=== PATIENT | male | born 1970 | race Caucasian/White ===

== ENCOUNTER 2019-06-17 09:44 | Emergency (ER) | payer MEDICARE, MEDICAID ==
[~2019-06-17] VITALS: Ht 182.9 cm; Wt 109.0 kg
[2019-06-17] MEDS ORDERED: IV NORMAL SALINE 1000ML BAG 1,000 ML IV ONE ×2 (10:00→12:00)
[2019-06-17 10:17] LABS: BASO # 0.1 x10^3/uL (0.0-0.2); BASO % 1 % (0-3); EOS # 0.1 x10^3/uL (0.0-0.7); EOS % 1 % (0-3); HEMATOCRIT 45.2 % (39.0-53.0); HEMOGLOBIN 15.2 g/dL (13.0-17.5); LYMPH % 43 % (24-48); MEAN CORPUSCULAR HEMOGLOBIN 30 pg (25-35); MEAN CORPUSCULAR HGB CONC 34 g/dL (31-37); MEAN CORPUSCULAR VOLUME 89 fL (79-100); MONO # 0.9 x10^3/uL (0.0-1.1); MONO % 9 % (0-9); NEUT # 4.4 x10^3/uL (1.8-7.7); NEUT % 46 % (31-73); PLATELET COUNT 262 x10^3/uL (140-400); RED BLOOD COUNT 5.09 x10^6/uL (4.30-5.70); RED CELL DISTRIBUTION WIDTH 13.7 % (11.5-14.5); WHITE BLOOD COUNT 9.5 x10^3/uL (4.0-11.0)
[2019-06-17 10:26] LABS: BARBITURATES NEG (NEG); BENZODIAZEPINES NEG (NEG); CANNABINOIDS NEG (NEG); COCAINE NEG (NEG); METHADONE NEG (NEG); OPIATES NEG (NEG); PHENCYCLIDINE NEG (NEG)
[2019-06-17 10:27] LABS: AMPHETAMINE/METHAMPHETAMINE NEG (NEG)
[2019-06-17 10:31] LABS: ALBUMIN 4.2 g/dL (3.4-5.0); ALBUMIN/GLOBULIN RATIO 1.3 (1.0-1.7); CREATININE 1.8 mg/dL (0.7-1.3); GFR 40.3; POTASSIUM 3.3 mmol/L (3.5-5.1); TOTAL BILIRUBIN 0.4 mg/dL (0.2-1.0); TOTAL PROTEIN 7.5 g/dL (6.4-8.2)
[2019-06-17 10:33] LABS: BILIRUBIN,URINE NEGATIVE (NEG); CLARITY,URINE CLEAR; COLOR,URINE YELLOW; NITRITE,URINE NEGATIVE (NEG); PH,URINE 5.5 (<5.0-8.0); PROTEIN,URINE 100 mg/dL (NEG-TRACE); UROBILINOGEN,URINE 0.2 mg/dL (0.2 mg/dL)
[2019-06-17 10:58] LABS: BACTERIA,URINE FEW /HPF (0-FEW); WBC,URINE RARE /HPF (0-4)
[2019-06-17 10:59] LABS: AMORPHOUS SEDIMENT,UR PRESENT /HPF; SQUAMOUS EPITHELIAL CELL,UR FEW /LPF
--- NOTE | 2019-06-17 12:09 | RAD ---
Axial CT images of the head were obtained without IV contrast. Comparison: None. Indication: Altered mental status Findings: No mass effect or hemorrhage is seen. The ventricles are not enlarged or effaced. No midline shift is noted. There is no intra or extra axial fluid collection. No bony or soft tissue abnormality is seen. The visualized paranasal sinuses are clear. Impression: 1. No acute intracranial process seen on non- contrast head CT. Exposure: One or more of the following individualized dose reduction techniques were utilized for this examination: 1. Automated exposure control 2. Adjustment of the mA and/or kV according to patient size 3. Use of iterative reconstruction technique Electronically signed by: Paul Gandara MD (06/17/2019 12:06 PM) [id number]
[2019-06-17 12:23] LABS: % BANDS 1 % (0-9); % EOS 5 % (0-5); % LYMPHS 52 % (24-48); % MONOS 6 % (0-10); % MYELOS 1 % (0-0); % SEGS 35 % (35-66)
[2019-06-17 12:24] LABS: PLT ESTIMATE ADEQUATE (ADEQUATE)
--- NOTE | 2019-06-17 12:40 | PHYS DOC ---
Past Medical History Past Medical History: Seizure Past Surgical History: No Surgical History Smoking Status: Unknown if ever smoked Alcohol Use: None Additional Information: UNKNOWN ETOH General Adult EDM: Chief Complaint: SEIZURE HPI: HPI: Patient is a 49-year-old male with a history of seizure disorder. He states he takes a couple of seizure medicines on a daily basis. 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 So not only was he extra stressed emotionally but this was physically taxing as well. After he got to work his when the seizure happened. EMS was called and on their arrival he was no longer seizing but did become belligerent. He denied taking any illicit substances. The only thing he states he is taken is his routine seizure me dication. He does state that he gets like this from time to time when he has a seizure. [] Review of Systems: Review of Systems: Constitutional: Denies fever or chills. [] Eyes: Denies change in visual acuity. [] HENT: Denies nasal congestion or sore throat. [] Respiratory: Denies cough or shortness of breath. [] Cardiovascular: Denies chest pain or edema. [] GI: Denies abdominal pain, nausea, vomiting, bloody stools or diarrhea. [] : Denies dysuria. [] Musculoskeletal: Denies back pain or joint pain. [] Integument: Denies rash. [] Neurologic: Reports witnessed seizure. [] Endocrine: Denies polyuria or polydipsia. [] Lymphatic: Denies swollen glands. [] Psychiatric: Reports anxiety [] Heart Score: Risk Factors: Risk Factors: DM, Current or recent (<one month) smoker, HTN, HLP, family history of CAD, obesity. Risk Scores: Score 0 - 3: 2.5% MACE over next 6 weeks - Discharge Home Score 4 - 6: 20.3% MACE over next 6 weeks - Admit for Clinical Observation Score 7 - 10: 72.7% MACE over next 6 weeks - Early Invasive Strategies Current Medications: Current Medications Medications (Trade) Dose Ordered Sig/Joanna Start Time Stop Time Status Last Admin Dose Admin Lorazepam (Ativan Inj) 1 mg 1X ONCE 06/17/19 10:00 06/17/19 10:10 DC 06/17/19 10:10 1 MG Sodium Chloride 1,000 ml @ 1,000 mls/hr 1X ONCE 06/17/19 12:00 06/17/19 12:59 Allergies: Allergies: Allergies Coded Allergies Type Severity Reaction Last Updated Verified Unable to Assess 06/17/19 No Physical Exam: PE: Constitutional: Well developed, well nourished, n agitated and belligerent. [] HENT: Normocephalic, atraumatic, bilateral external ears normal, oropharynx moist, no oral exudates, nose normal. [] Eyes: PERRLA, EOMI, conjunctiva normal, no discharge. [] Neck: Normal range of motion, no tenderness, supple, no stridor. [] Cardiovascular:Heart rate regular rhythm, no murmur [] Lungs & Thorax: Bilateral breath sounds clear to auscultation [] Abdomen: Bowel sounds normal, soft, no tenderness, no masses, no pulsatile masses. [] Skin: Warm, dry, no erythema, no rash. [] Back: No tenderness, no CVA tenderness. [] Extremities: No tenderness, no cyanosis, no clubbing, ROM intact, no edema. [] Neurologic: Alert to self initially, normal motor function, normal sensory function, no focal deficits noted. [] Psychologic: Extremely agitated [] Current Patient Data: Labs: Laboratory Tests Test 06/17/19 10:00 White Blood Count 9.5 x10^3/uL (4.0-11.0) Red Blood Count 5.09 x10^6/uL (4.30-5.70) Hemoglobin 15.2 g/dL (13.0-17.5) Hematocrit 45.2 % (39.0-53.0) Mean Corpuscular Volume 89 fL (79-100) Mean Corpuscular Hemoglobin 30 pg (25-35) Mean Corpuscular Hemoglobin Concent 34 g/dL (31-37) Red Cell Distribution Width 13.7 % (11.5-14.5) Platelet Count 262 x10^3/uL (140-400) Neutrophils (%) (Auto) 46 % (31-73) Lymphocytes (%) (Auto) 43 % (24-48) Monocytes (%) (Auto) 9 % (0-9) Eosinophils (%) (Auto) 1 % (0-3) Basophils (%) (Auto) 1 % (0-3) Neutrophils # (Auto) 4.4 x10^3/uL (1.8-7.7) Lymphocytes # (Auto) 4.0 x10^3/uL (1.0-4.8) Monocytes # (Auto) 0.9 x10^3/uL (0.0-1.1) Eosinophils # (Auto) 0.1 x10^3/uL (0.0-0.7) Basophils # (Auto) 0.1 x10^3/uL (0.0-0.2) Segmented Neutrophils % 35 % (35-66) Band Neutrophils % 1 % (0-9) Lymphocytes % 52 % (24-48) H Monocytes % 6 % (0-10) Eosinophils % 5 % (0-5) Myelocytes % 1 % (0-0) H Platelet Estimate Adequate (ADEQUATE) Urine Collection Type Unknown Urine Color Yellow Urine Clarity Clear Urine pH 5.5 (<5.0-8.0) Urine Specific [place] 1.025 (1.000-1.030) Urine Protein 100 mg/dL (NEG-TRACE) Urine Glucose (UA) 100 mg/dL (NEG) Urine Ketones (Stick) Negative mg/dL (NEG) Urine Blood Moderate (NEG) Urine Nitrite Negative (NEG) Urine Bilirubin Negative (NEG) Urine Urobilinogen Dipstick 0.2 mg/dL (0.2 mg/dL) Urine Leukocyte Esterase Negative (NEG) Urine RBC 6-10 /HPF (0-2) Urine WBC Rare /HPF (0-4) Urine Squamous Epithelial Cells Few /LPF Urine Amorphous Sediment Present /HPF Urine Bacteria Few /HPF (0-FEW) Urine Mucus Mod /LPF Sodium Level 141 mmol/L (136-145) Potassium Level 3.3 mmol/L (3.5-5.1) L Chloride Level 101 mmol/L (98-107) Carbon Dioxide Level 12 mmol/L (21-32) L Anion Gap 28 (6-14) H Blood Urea Nitrogen 17 mg/dL (8-26) Creatinine 1.8 mg/dL (0.7-1.3) H Estimated GFR (Cockcroft-Gault) 40.3 BUN/Creatinine Ratio 9 (6-20) Glucose Level 184 mg/dL (70-99) H Calcium Level 9.0 mg/dL (8.5-10.1) Total Bilirubin 0.4 mg/dL (0.2-1.0) Aspartate Amino Transferase (AST) 36 U/L (15-37) Alanine Aminotransferase (ALT) 49 U/L (16-63) Alkaline Phosphatase 125 U/L (46-116) H Creatine Kinase 422 U/L (39-308) H Total Protein 7.5 g/dL (6.4-8.2) Albumin 4.2 g/dL (3.4-5.0) Albumin/Globulin Ratio 1.3 (1.0-1.7) Urine Opiates Screen Neg (NEG) Urine Methadone Screen Neg (NEG) Urine Barbiturates Neg (NEG) Urine Phencyclidine Screen Neg (NEG) Urine Amphetamine/Methamphetamine Neg (NEG) Urine Benzodiazepines Screen Neg (NEG) Urine Cocaine Screen Neg (NEG) Urine Cannabinoids Screen Neg (NEG) Ethyl Alcohol Level < 10 mg/dL (0-10) Urine Ethyl Alcohol Neg (NEG) Laboratory Tests 06/17/19 10:00 Laboratory Tests 06/17/19 10:00 Vital Signs: Vital Signs Date Time Temp Pulse Resp B/P (MAP) Pulse Ox O2 Delivery O2 Flow Rate FiO2 06/17/19 09:44 100.1 154 26 221/98 (139) 93 Room Air 100.1 EKG: EKG: [] Radiology/Procedures: Radiology/Procedures: [] Impression: REASON: Altered Mental Status PROCEDURE: CT HEAD WO CONTRAST Axial CT images of the head were obtained without IV contrast. Comparison: None. Indication: Altered mental status Findings: No mass effect or hemorrhage is seen. The ventricles are not enlarged or effaced. No midline shift is noted. There is no intra or extra axial fluid collection. No bony or soft tissue abnormality is seen. The visualized paranasal sinuses are clear. Impression: Course & Med Decision Making: Course & Med Decision Making Pertinent Labs and Imaging studies reviewed. (See chart for details) [ED course: Evaluation reveals a 49-year-old male with a known seizure disorder who had a witnessed seizure at work. He was quite agitated on arrival here he was given IV fluids and a milligram of Ativan which did help to calm him down acutely but over time he became awake alert talkative back to his normal state. Initially he had a anion gap acidosis likely related to a seizure. After IV fluids we recheck the basic metabolic panel and his acidosis had corrected. Patient is awake and alert now and stable for discharge home.] CRITICAL CARE: Time spent was 35 minutes. This includes medical management, evaluation, reevaluation, discussion with consultants and family. Critical Care does NOT include time spent on separately billed procedures. Dragon Disclaimer: Dragon Disclaimer: This electronic medical record was generated, in whole or in part, using a voice recognition dictation system. Departure Departure Impression: Primary Impression: Seizure Additional Impression: High anion gap metabolic acidosis Disposition: HOME, SELF-CARE Condition: IMPROVED Referrals: UNKNOWN PCP NAME (PCP) Patient Instructions: Seizure, Adult Additional Instructions: Return to the emergency department with any new or concerning symptoms RAÚL LMEUS DO June 17, 2019 12:40
[2019-06-17 12:42] LABS: CALCIUM 8.8 mg/dL (8.5-10.1); CREATININE 1.3 mg/dL (0.7-1.3); GFR 58.7
[2019-06-17 14:01] VITALS: BP 137/94
== END 2019-06-17 14:20 | disposition home or self-care (01) ==
LOC: ER 09:44
DX: R56.9 Unspecified convulsions (principal); E87.2 Acidosis; R51 Headache
CPT/HCPCS: 36415; 70450; 80048; 80053; 80307; 81001; 82550; 85007; 85025; 96374; 99291; G0480; J2060; J7030